=== PATIENT | female | born 1950 ===

== ENCOUNTER 2017-12-14 08:39 | Day surgery (SDC) | payer MEDICARE, MEDICAID ==
[2017-05-17 09:43] VITALS: BMI 27.9
[2017-12-14] MEDS ORDERED: Lactated Ringer's 500 ML IV ONE (09:28)
[2017-12-14 09:45] VITALS: O2SAT 100
[2017-12-14] MEDS ORDERED: Midazolam 2 MG/2 ML VIAL ONE (11:26)
[2017-12-14] MEDS ORDERED: Propofol 10 mg/ml Inj (20 ML) ONE (11:26)
[2017-12-14 11:58] VITALS: TEMP 96.9
[2017-12-14 12:07] VITALS: BP 135/63; PULSE 58; RESP 14
== END 2017-12-14 12:44 | disposition home or self-care (01) ==
LOC: H.ENDO 08:39
PROVIDERS: ATTEND Internal Medicine Gastroenterology
DX: Z12.11 Encounter for screening for malignant neoplasm of colon (principal); K64.8 Other hemorrhoids; K57.30 Diverticulosis of large intestine without perforation or abscess without bleeding; F41.9 Anxiety disorder, unspecified; F32.9 Major depressive disorder, single episode, unspecified; E66.9 Obesity, unspecified; Z68.30 Body mass index [BMI] 30.0-30.9, adult
CPT/HCPCS: 45378; J2001; J2250; J2704; J7120